=== PATIENT | male | born 1970 | race Caucasian/White ===

== ENCOUNTER 2017-03-19 10:26 | Emergency (ER) | payer OTHER ==
[~2017-03-19] VITALS: Ht 180.3 cm; Wt 104.3 kg
[~2017-03-19 10:26] MED LIST: MOTRIN 600 MG600 MG PO; TRAMADOL50 MG PO
[2017-03-19 10:38] VITALS: BP 146/83
--- NOTE | 2017-03-19 11:24 | ED HAND/WRIST INJURY COMPLAINT ---
History of Present Illness General Chief Complaint: Laceration Procedure Stated Complaint: LAC TO LT HAND Source: patient Exam Limitations: no limitations Vital Signs & Intake/Output Vital Signs & Intake/Output Vital Signs Date Time Temp Pulse Resp B/P B/P Pulse O2 O2 Flow FiO2 Mean Ox Delivery Rate 03/19 1038 97.7 69 20 146/83 98 Room Air Allergies Coded Allergies: nut - unspecified (UNKNOWN 03/19/17) strawberry (UNKNOWN 03/19/17) Uncoded Allergies: FRUITS (UNKNOWN 03/19/17) Reconcile Medications Metoprolol Succ XL (Toprol XL) 25 MG TAB 1 TAB PO DAILY heart (Reported) Montelukast Sodium (Singulair) 10 MG TABLET 1 TAB PO DAILY ALLERGIES ( Reported) Triage Note: PT TO ED 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 LAC IS BETWEEN THUMB AND INDEX FINGER. DENIES PAIN. THINKS TETANUS IS UP TO DATE. Triage Nurses Notes Reviewed? yes Occurred: just prior to arrival Duration: minute(s):, constant, continues in ED Timing: recent history Injury Environment: home Severity: mild, moderate Pain/Injury Location: Left: Hand. Method of Injury: laceration No Modifying Factors: none HPI: 46-year-old male comes into emergency room for the evaluation of laceration to left hand. Patient cut her by accident with night. Denies any numbness or tingling. Last tetanus shot unknown. Some associated bleeding. Denies any other associated symptoms. Mild throbbing pain. Continuous. (FREYA HARDY) Past History Travel History Traveled to [place] past 21 day No Medical History Any Pertinent Medical History? none Tetanus Vaccine: 08/30/12 Surgical History Surgical History: non-contributory Psychosocial History What is your primary language [place]ijani Tobacco Use: Never used ETOH Use: denies use Illicit Drug Use: denies illicit drug use Family History Hx Contributory? No (FREYA HARDY) Review of Systems Review of Systems Constitutional: Reports: no symptoms. EENTM: Reports: no symptoms. Respiratory: Reports: no symptoms. Cardiovascular: Reports: no symptoms. GI: Reports: no symptoms. Genitourinary: Reports: no symptoms. Musculoskeletal: Reports: no symptoms. Skin: Reports: see HPI. Neurological/Psychological: Reports: no symptoms. Hematologic/Endocrine: Reports: see HPI. Immunologic/Allergic: Reports: no symptoms. All Other Systems: Reviewed and Negative (FREYA HARDY) Physical Exam Physical Exam General Appearance: well developed/nourished, mild distress Head: atraumatic Eyes: Bilateral: normal appearance. Ears, Nose, Throat: normal ENT inspection, hearing grossly normal Neck: normal inspection Cardiovascular/Respiratory: no respiratory distress Back: normal inspection Hand Left: 2 cm superficial laceration between the first and second digit Hand Right: normal inspection Neurologic/Tendon: normal sensation, normal motor functions, normal tendon functions, responds to pain, no evidence tendon injury, no pulse deficit Skin: intact, normal color, warm/dry Lymphatic: no anterior cervical isauro (FREYA HARDY) Progress Differential Diagnosis: dislocation, felon, fracture, gout, paronychia, septic arthritis, sprain, tenosynovitis Plan of Care: Current Medications Sig/Chantel Start time Last Medication Dose Stop Time Status Admin Tetanus/Diphtheria 0.5 ML ONCE ONE 03/19 1130 UNVr Toxoids Adsorbed 03/19 1131 (Decavac) Departure Departure Disposition: HOME OR SELF CARE Condition: Stable Clinical Impression Primary Impression: Finger laceration Referrals: BLANQUITA BUENO MD (PCP/Family) Additional Instructions: Return in 7 days for suture removal. Wash or signs of infection such as ready to discharge to or chills. Please go over all results of today's visit with your primary care doctor. Contact your primary care doctor to let them know you were here in the emergency room. There may be nonspecific findings which may not be related to your visit today here in the emergency room but may require further evaluation and chronic monitoring by your primary care doctor. If you had a laceration today the chance of foreign body always remains. You should follow-up with your primary care doctor for recheck in 3-5 days for a wound check. If you had an x-ray done there is a chance that a fracture could have been missed on initial read and you should follow-up with your primary care doctor for repeat x-rays if symptoms persist. If your blood pressure was elevated here in the emergency room please have rechecked by her primary care doctor within the next 48 hours by your primary care doctor. If you were prescribed a narcotic here in the emergency room or any type of controlled substances you're not allowed to drive while taking this medication or operate any type of heavy machinery. Narcotics can make you feel lightheaded dizziness nausea and can cause constipation. You may need to cotton picker a stool softener. Thank you for choosing [facility] emergency room. Please return to the emergency room immediately if you have any other concerns worsening of symptoms. Departure Forms: Customer Survey General Discharge Information (FREYA HARDY) PA/VENDETTE Co-Sign Statement Statement: ED Attending supervision documentation- [] I saw and evaluated the patient. I have also reviewed all the pertinent lab results and diagnostic results. I agree with the findings and the plan of care as documented in the PA's/VENDETTE's documentation. [X] I have reviewed the ED Record and agree with the PA's/VENDETTE's documentation. [] Additions or exceptions (if any) to the PAs/VENDETTE's note and plan are summarized below: [] (LÓPEZ SILVERMAN,HEBER [place]) Procedures Laceration/Wound Repair Progress: 2 cm laceration between the first and second digit on the left hand, twisted bleeding, 1% lidocaine, 3 mL injected, Betadine prep, irrigated with saline and peroxide, 4.0 nylon, 3 sutures placed, sterile technique, patient tolerated procedure well, Performed by PA student with my supervision (FREYA HARDY)
[2017-03-19] MEDS ORDERED: TOPROL XL25 M1 PO (11:40)
[2017-03-19] MEDS ORDERED: SINGULAIR10 M1 PO (11:41)
== END 2017-03-19 12:06 ==
LOC: ERH 10:26
DX: S61.412A Laceration without foreign body of left hand, initial encounter (principal); W26.0XXA Contact with knife, initial encounter; Y93.9 Activity, unspecified; Y92.9 Unspecified place or not applicable
CPT/HCPCS: 90471; 90714